=== PATIENT | female | born 1930 | race Caucasian/White ===

== ENCOUNTER → 2016-08-30 | Outpatient (CLI) | payer MEDICARE, OTHER ==
--- NOTE | 2016-08-30 22:08 | RADRPT ---
PROCEDURE: Right knee radiographs. CLINICAL INDICATION: Right knee pain. TECHNIQUE: Four views. Weight bearing. Frontal, lateral, oblique, and patellar view. COMPARISON: 07/25/2014. FINDINGS: There is no fracture or dislocation. There is mild chondrocalcinosis in the medial and lateral joint compartments. There are degenerative changes with osteophytes arising from all 3 joint compartment margins. There is medial joint compartment narrowing. There is no lytic or blastic lesion. There is no radiopaque foreign body. IMPRESSION: 1. Moderate degenerative change. 2. Chondrocalcinosis. 3. No acute abnormality. RPTAT: QQ .Andriy Winchester MD, MD Date Time Electronically viewed and signed by .Andriy Winchester MD, MD on 08/30/2016 22:08 .R/
== END | disposition home or self-care (01) ==
LOC: HKI 14:34
PROVIDERS: ATTEND Orthopaedic Surgery
DX: M17.11 Unilateral primary osteoarthritis, right knee (principal); M25.561 Pain in right knee
CPT/HCPCS: 20610; 73564; G0463; J7327